=== PATIENT | female | born 2005 | race Caucasian/White ===

== ENCOUNTER 2025-07-30 05:47 | Emergency (ER) | payer OTHER ==
[2025-07-30] MEDS ORDERED: Ketorolac Tromethamine 30 MG (1 mL) VIAL ONE (06:20)
[2025-07-30 06:36] LABS: Glucose, Urine (Dipstick) Normal (Negative); Leukocyte Negative (Negative); Protein, Urine (Dipstick) 15 mg/dl (Neg-Trace); Specific Gravity, Urine 1.010 (1.005-1.030)
[2025-07-30 06:44] LABS: Bacteria/HPF None Seen HPF (None Seen); CAUTI Indications for Culture Pelvic or flank pain; RBC/HPF None Seen HPF (0-3); Urine Culture Reflex No No; WBC/HPF None Seen HPF (0-3)
[2025-07-30 06:44] LABS: #Basophils 0.06 10x3/uL (0.0-0.2); #Eosinophils 0.30 10x3/uL (0.0-0.5); #Monocytes 1.01 10x3/uL (0.0-1.1); #Neutrophils 14.22 10x3/uL (1.5-8.4); %Basophils 0.3 % (0.0-2.0); %Eosinophils 1.7 % (0.0-6.0); %Lymphocytes 9.6 % (18.0-47.0); %Monocytes 5.8 % (0.0-10.0); %Neutrophils 82.1 % (40.0-75.0); Hematocrit 41.0 % (34.9-44.5); Hemoglobin 14.1 g/dL (12.0-15.5); Mean Corpuscular Hemoglobin 28.4 pg (27.0-33.0); Mean Corpuscular Volume 82.7 fL (81.6-98.3); Platelet Count 303 10x3/uL (150-450); Red Blood Cell (RBC) Count 4.96 10x6/uL (3.90-5.03); White Blood Cell (WBC) Count 17.33 10x3/uL (3.5-10.5)
[2025-07-30 06:57] LABS: BHCG - Serum Negative (NEGATIVE)
[2025-07-30 06:58] LABS: Pregs Control Background? CLEAR/WHITE (CLR/WHITE); Pregs Control Bar Appear? YES (CONTROL BAR)
[2025-07-30 07:04] LABS: ALT (SGPT) 34 U/L (Less than 34); AST (SGOT) 26 U/L (11-34); Albumin 4.6 g/dL (3.1-4.5); Alkaline Phosphatase 131 U/L (40-110); Anion Gap 17 mmol/L (10-20); BUN (Urea Nitrogen) 21 mg/dL (7.0-18.7); Bilirubin, Total 0.2 mg/dL (0.3-1.2); Calc. Creatinine Clearance 0 mL/min (70-130); Calcium 10.8 mg/dL (7.8-10.44); Carbon Dioxide 21 mmol/L (22-29); Chloride 108 mmol/L (98-107); Globulin 3.6 g/dL (2.4-3.5); Glucose 93 mg/dL (70-105); Potassium 4.0 mmol/L (3.5-5.1); Sodium 142 mmol/L (136-145)
[2025-07-30] MEDS ORDERED: Iopamidol 300 61% 100 ML VIAL FS ONE (10:08)
== END 2025-07-30 10:20 | disposition home or self-care (01) ==
LOC: CSHERS 05:47
DX: R10.31 Right lower quadrant pain (principal)
CPT/HCPCS: 36415; 74177; 76856; 80053; 81001; 84703; 85025; 96374; J1885